=== PATIENT | female | born 1970 | race Caucasian/White ===

== ENCOUNTER 2017-11-15 05:35 | Inpatient (IN) | payer OTHER ==
[~2017-11-15] VITALS: Ht 154.9 cm; Wt 74.4 kg
[~2017-11-15 05:35] MED LIST: ALPR0.25 PO; LEVO100T9 PO; LEVO88TA5 PO; TRAM50TA2 PO
[2017-11-15] MEDS ORDERED: ALVIMOPAN 12 MG CAPSULE PO ONE ×2 (06:06→06:30)
[2017-11-15] MEDS ORDERED: cefOXitin SODIUM 2 GM in D5W 100 ML IV ONE (06:45)
[2017-11-15] MEDS ORDERED: POLYMYXIN 500,000/BACIT.10,000 UNITS in NS IRR 1 L IR ONE (07:27)
[2017-11-15] MEDS ORDERED: ROCURONIUM BROMIDE 10 MG/ML (ZEMURON) IV ONE (07:40)
[2017-11-15] MEDS ORDERED: NS IRRIG SOLN 1000 ML IR ONE (07:40)
[2017-11-15] MEDS ORDERED: fentaNYL CITRATE 250 MCG/5 ML AMP IV ONE (07:40)
[2017-11-15] MEDS ORDERED: fentaNYL CITRATE/PF 100 MCG/2 ML AMP IVP ONE (07:40)
[2017-11-15] MEDS ORDERED: PROPOFOL 200MG/ 20ML VIAL (DIPRIVAN) IV ONE (07:40)
[2017-11-15] MEDS ORDERED: LR 1,000 ML IV.SOLN IV ONE (07:40)
[2017-11-15] MEDS ORDERED: ONDANSETRON HCL 4 MG/2 ML VIAL IVP ONE (07:40)
[2017-11-15] MEDS ORDERED: MIDAZOLAM HCL 5 MG/5 ML VIAL IVP ONE (07:40)
[2017-11-15] MEDS ORDERED: NS 1000 ML IV.SOLN IV ONE (07:40)
[2017-11-15] MEDS ORDERED: SEVOFLURANE 15 MIN GAS INH ONE (07:40)
[2017-11-15] MEDS ORDERED: LR 1,000 ML IV SCH (08:59)
[2017-11-15] MEDS ORDERED: METOCLOPRAMIDE HCL 10 MG/2 ML VIAL IVP PRN (09:00)
[2017-11-15] MEDS ORDERED: HYDROmorphone 1 MG INJ. 1 MG/ML AMPUL IVP PRN ×2 (09:00)
[2017-11-15] MEDS ORDERED: HYDROmorphone 2 MG/ML VIAL IVP PRN (09:00)
[2017-11-15] MEDS ORDERED: ACETAMINOPHEN 325 MG TABLET PO PRN (10:15)
[2017-11-15] MEDS ORDERED: HYDROcodone/ACETAMIN 5-325 MG TAB (NORCO/ VICODIN) PO PRN (10:15)
[2017-11-15] MEDS ORDERED: ONDANSETRON HCL 4 MG/2 ML VIAL IVP PRN (10:15)
[2017-11-15] MEDS ORDERED: HYDROmorphone 1 MG INJ. 1 MG/ML AMPUL ONE ×2 (10:38→11:58)
[2017-11-15 10:48] LABS: HEMATOCRIT 38.1 % (36-48); HEMOGLOBIN 13.3 g/dL (12.0-16.0)
[2017-11-15 10:54] LABS: CALCIUM 8.5 mg/dL (8.4-11.0); CREATININE 0.91 mg/dL (0.55-1.30); POTASSIUM 3.6 mmol/L (3.5-5.1)
[2017-11-15 12:00] VITALS: BP_SYST 122
[2017-11-15 12:05] VITALS: BP_SYST 122
[2017-11-15 12:09] VITALS: BP_SYST 122
[2017-11-15] MEDS: D5/0.45 NS 1,000 ML IV SCH (12:59)
[2017-11-15] MEDS: HYDROmorphone 1 MG INJ. 1 MG/ML AMPUL IVP PRN ×4 (13:00→21:20)
[2017-11-15 13:47] VITALS: BP_SYST 122
[2017-11-15] MEDS ORDERED: BUPIVACAINE LIPOSOME/PF 266 MG/20 ML VIAL INFIL ONE (15:28)
[2017-11-15 20:00] VITALS: BP_SYST 98
[2017-11-15] MEDS: FAMOTIDINE PF 20 MG/2 ML VIAL IVP SCH (20:30)
[2017-11-15] MEDS: ALVIMOPAN 12 MG CAPSULE PO SCH (20:30)
[2017-11-15] MEDS ORDERED: cefOXitin 1 GM IVPB PREMIX 100 ML IV ONE (20:31)
[2017-11-15] MEDS: cefOXitin SODIUM 2 GM in D5W 100 ML IV SCH (20:32)
[2017-11-16 00:06] VITALS: BP_SYST 99
[2017-11-16] MEDS: HYDROmorphone 1 MG INJ. 1 MG/ML AMPUL IVP PRN ×2 (01:37→05:31)
[2017-11-16] MEDS: D5/0.45 NS 1,000 ML IV SCH ×3 (05:34→15:44)
[2017-11-16 06:15] LABS: BASOPHILS # (AUTO) 0.1 K/uL (0.0-0.2); BASOPHILS % (AUTO) 0.4 % (0.0-2.0); HEMATOCRIT 33.5 % (36-48); HEMOGLOBIN 11.3 g/dL (12.0-16.0); LYMPHOCYTES # (AUTO) 2.1 K/uL (1.0-5.5); LYMPHOCYTES % (AUTO) 13.5 % (20.5-51.5); MEAN CORPUSCULAR HEMOGLOBIN 28 pg (27-31); MEAN CORPUSCULAR HGB CONC 34 % (32-36); MEAN CORPUSCULAR VOLUME 84 fL (79.0-98.0); MONOCYTES % (AUTO) 6.1 % (1.7-9.3); NEUTROPHILS # (AUTO) 12.6 K/uL (1.8-7.7); PLATELET COUNT (AUTO) 350 K/uL (130-430); RED CELL DISTRIBUTION WIDTH 12.3 % (9.0-15.0); WHITE BLOOD COUNT (AUTO) 15.8 K/uL (4.8-10.8)
[2017-11-16 06:33] LABS: CALCIUM 8.2 mg/dL (8.4-11.0); CREATININE 0.64 mg/dL (0.55-1.30); POTASSIUM 3.7 mmol/L (3.5-5.1); TOTAL BILIRUBIN 0.5 mg/dL (0.0-1.0)
[2017-11-16 08:20] VITALS: BP_SYST 99
[2017-11-16] MEDS: ALVIMOPAN 12 MG CAPSULE PO SCH ×2 (08:42→20:12)
[2017-11-16] MEDS: FAMOTIDINE PF 20 MG/2 ML VIAL IVP SCH ×2 (08:43→20:12)
[2017-11-16] MEDS: HYDROcodone/ACETAMIN 5-325 MG TAB (NORCO/ VICODIN) PO PRN ×3 (08:43→20:13)
[2017-11-16] MEDS: ENOXAPARIN SODIUM 30 MG/0.3 ML SYRINGE SUBCUT SCH (08:48)
[2017-11-16] MEDS: cefOXitin SODIUM 2 GM in D5W 100 ML IV SCH (10:28)
[2017-11-16 12:54] VITALS: BP_SYST 99
[2017-11-16] MEDS: METOCLOPRAMIDE HCL 10 MG/2 ML VIAL IVP SCH ×3 (14:50→23:20)
[2017-11-16 16:55] VITALS: BP_SYST 117
[2017-11-16 20:00] VITALS: BP_SYST 103
[2017-11-17 00:36] VITALS: BP_SYST 108
[2017-11-17] MEDS: D5/0.45 NS 1,000 ML IV SCH ×2 (03:01→11:29)
[2017-11-17] MEDS: HYDROcodone/ACETAMIN 5-325 MG TAB (NORCO/ VICODIN) PO PRN ×3 (03:08→17:14)
[2017-11-17] MEDS: METOCLOPRAMIDE HCL 10 MG/2 ML VIAL IVP SCH ×3 (05:00→17:13)
[2017-11-17 08:20] VITALS: BP_SYST 128
[2017-11-17] MEDS: ALVIMOPAN 12 MG CAPSULE PO SCH (08:51)
[2017-11-17] MEDS: FAMOTIDINE PF 20 MG/2 ML VIAL IVP SCH (08:51)
[2017-11-17] MEDS: ENOXAPARIN SODIUM 30 MG/0.3 ML SYRINGE SUBCUT SCH (08:55)
[2017-11-17 12:20] VITALS: BP_SYST 131
[2017-11-17 15:08] VITALS: BP_SYST 131
[2017-11-17] MEDS ORDERED: HYDR-3606 PO (15:18)
[2017-11-17 16:51] VITALS: BP_SYST 128
== END 2017-11-17 18:45 | disposition home or self-care (01) | DRG 331 ==
LOC: SMU 05:35
PROVIDERS: ADMIT Colon & Rectal Surgery; ATTEND Colon & Rectal Surgery
PROC: 0DBP4ZZ Excision of Rectum, Percutaneous Endoscopic Approach (ICD-10-PCS; 2017-11-15)
PROC: 0DNN4ZZ Release Sigmoid Colon, Percutaneous Endoscopic Approach (ICD-10-PCS; 2017-11-15)
PROC: 0DJD8ZZ Inspection of Lower Intestinal Tract, Via Natural or Artificial Opening Endoscopic (ICD-10-PCS; 2017-11-15)
PROC: 0DBN4ZZ Excision of Sigmoid Colon, Percutaneous Endoscopic Approach (ICD-10-PCS; principal; 2017-11-15 07:30)
DX: K57.32 Diverticulitis of large intestine without perforation or abscess without bleeding (principal); F41.8 Other specified anxiety disorders; G43.909 Migraine, unspecified, not intractable, without status migrainosus; E03.9 Hypothyroidism, unspecified; G62.9 Polyneuropathy, unspecified; Z90.49 Acquired absence of other specified parts of digestive tract; Z98.51 Tubal ligation status; Z82.49 Family history of ischemic heart disease and other diseases of the circulatory system; Z83.49 Family history of other endocrine, nutritional and metabolic diseases; Z83.3 Family history of diabetes mellitus; Z83.2 Family history of diseases of the blood and blood-forming organs and certain disorders involving the immune mechanism; Z87.891 Personal history of nicotine dependence; Z88.8 Allergy status to other drugs, medicaments and biological substances
CPT/HCPCS: 36415; 80048; 80053; 85018-TC; 85025; 87081; 88307; 94010; 97110-GP; 97116-GP; 97530-GP; C1727; C9290; J0694; J1170; J1650; J2250; J2405; J2704; J2765; J3010; J3490; J7030; J7060; J7120